=== PATIENT | male | born 1975 | race Hispanic/Latino ===

== ENCOUNTER 2018-09-28 01:53 | Emergency (ER) | payer OTHER ==
[~2018-09-28] VITALS: Ht 172.7 cm; Wt 92.5 kg
[2018-09-28] MEDS ORDERED: PENICILLIN G BENZATHINE LA 1.2 MU TBX IM STA (02:19)
[2018-09-28] MEDS ORDERED: PENICILLIN G BENZATHINE LA 1.2 MU TBX ONE (02:37)
--- NOTE | 2018-09-28 03:20 | Diagnostic Imaging Report ---
EXAMINATION: CXR 2 VIEW - HOPD INDICATION: Cough. ^[id number] ^[id number] COMPARISON: None FINDINGS: PA and lateral views TUBES and LINES: None. LUNGS: Lungs are well inflated. There is no evidence of pneumonia or pulmonary edema. PLEURA: No pleural effusion or pneumothorax. HEART AND MEDIASTINUM: The cardiomediastinal silhouette is unremarkable. BONES AND SOFT TISSUES: No acute osseous lesion. Soft tissues are unremarkable. UPPER ABDOMEN: No free air under the diaphragm. IMPRESSION: No acute thoracic abnormality. Signed by: Dr. Daron Rehman MD on 09/28/2018 3:16 AM
[2018-09-28 03:26] VITALS: BP 133/69
== END 2018-09-28 03:29 | disposition home or self-care (01) ==
LOC: FSED 01:53
DX: J03.00 Acute streptococcal tonsillitis, unspecified (principal); E78.5 Hyperlipidemia, unspecified; J02.0 Streptococcal pharyngitis
CPT/HCPCS: 71046; 83518; 99283; J0561